=== PATIENT | female | born 1985 | race Caucasian/White ===

== ENCOUNTER 2016-12-14 09:10 | Emergency (ER) | payer OTHER ==
[2016-12-14 09:47] VITALS: BP 107/75
--- NOTE | 2016-12-14 10:11 | UC ---
I, Kwasi,Yin, scribed for Melo Sampson MD on 12/14/16 at 1009 . Respiratory Complaint HPI - HPI Summary HPI Summary: THis 31 y/o female presents to [facility] with chief complaint of sore throat since 3 days ago. She reports hoarseness, subjective fever, cough, ear "itchiness", general myalgia, and diaphoresis. Positive n/v x1 and mild diarrhea this morning. Pt has been taking ibuprofen and mucinex to control symptoms with little relief. PMHx includes tonsillectomy, robyn, appy, and seasonal asthma. - History of Current Complaint Stated Complaint: CONGESTION COUGH HEADACHE VOMITING Hx Obtained From: Patient, Medical Records Hx Last Menstrual Period: 11/30/16 Onset/Duration: Gradual Onset, Still Present Timing: Constant Severity Initially: Mild Severity Currently: Moderate Character: Cough: Productive Associated Signs And Symptoms: Positive: Fever, URI, Hoarseness - Allergies/Home Medications Allergies/Adverse Reactions: Allergies Allergy/AdvReac Type Severity Reaction Status Date / Time Penicillins Allergy Intermediate Swelling Verified 12/14/16 09:47 Of Face,Lips,& Throat sudafed Allergy Rash Uncoded 11/14/16 15:43 Home Medications: Home Medications Dextromethorphan-Phenylephrine [Day-Time PE Cold/Flu Reli] 1 cap PO PRN [History] PMH/Surg Hx/FS Hx/Imm Hx Respiratory History Of: Reports: Asthma - seasonal - Surgical History Surgical History: Yes Surgery Procedure, Year, and Place: 2011. CHOLECYSTECTOMY. APPY. TONSILLECTOMY - Family History Known Family History: Positive: Diabetes - paternal grandmother - Social History Alcohol Use: Occasionally Substance Use Type: None Smoking Status (MU): Never Smoked Tobacco - Immunization History Most Recent Influenza Vaccination: never gets one Review of Systems Constitutional: Fever, Other - diaphoresis Skin: Negative Eyes: Negative ENT: Sore Throat, Ear Ache - ear discomfort Respiratory: Cough Cardiovascular: Negative Gastrointestinal: Vomiting - x1 this morning, Diarrhea - mild Genitourinary: Negative Motor: Negative Musculoskeletal: Negative Neurological: Negative Psychological: Negative All Other Systems Reviewed And Are Negative: Yes Physical Exam Triage Information Reviewed: Yes Appearance: Well-Appearing, No Pain Distress, Well-Nourished Vital Signs: Initial Vital Signs Temp 97.8 F 12/14/16 09:41 Pulse 91 12/14/16 09:41 Resp 16 12/14/16 09:41 BP 107/75 12/14/16 09:41 Pulse Ox 99 12/14/16 09:41 Vital Signs Reviewed: Yes Eyes: Positive: Conjunctiva Clear ENT: Positive: Normal ENT inspection, Hearing grossly normal, Pharyngeal erythema, Nasal congestion, Nasal drainage Neck exam: Normal Neck: Positive: Supple, Nontender, No Lymphadenopathy Respiratory: Positive: Chest non-tender, Lungs clear, Normal breath sounds Cardiovascular: Positive: RRR, No Murmur, Pulses Normal Skin Exam: Normal UC Diagnostic Evaluation - Laboratory O2 Sat by Pulse Oximetry: 99 Respiratory Course/Dx - Differential Dx/Diagnosis Provider Diagnoses: URI Discharge - Discharge Plan Condition: Stable Disposition: HOME Prescriptions: Fluticasone NASAL SPRAY 50MCG* [Flonase NASAL SPRAY 50MCG*] 2 spray BOTH NARES DAILY #1 btl Patient Education Materials: Upper Respiratory Infection (ED) Forms: *Work Release Referrals: Brennon Mcdonough MD [Primary Care Provider] - If Needed The documentation as recorded by the Kwasi jackson Soohyun accurately reflects the service I personally performed and the decisions made by Camilla santos Hossein, MD.
== END 2016-12-14 10:12 | disposition home or self-care (01) ==
LOC: UCEAST 09:10
DX: J06.9 Acute upper respiratory infection, unspecified (principal); Z88.0 Allergy status to penicillin; Z87.09 Personal history of other diseases of the respiratory system
CPT/HCPCS: 99212; G0463

== ENCOUNTER 2017-04-05 08:12 | Emergency (ER) | payer OTHER ==
--- NOTE | 2017-04-05 08:25 | UC ---
Respiratory Complaint HPI - HPI Summary HPI Summary: Here w/ cold sx getting worse from 03/31/17. Was seen by PCP Dr. Mcdonough on 03/31/17 and dx w/ bronchitis and sinusitis, started on doxycycline 100mg BID x10 days, on day 05/03. States sx has not improved. C/o chest pain w/ breathing/coughing and pain worse when lying down. Also c/o arms/shoulder hurt when lifting arms up. Fever on/off last couple days, tmax 101.5. Taking ibuprofen prn, last dose yesterday night. Has taken doxy x 6 d. has lost voice as well. no smoking. no OCP. No travel. using tessalon and proair [ End ] - History of Current Complaint Chief Complaint: UCRespiratory Stated Complaint: COUGH,TIGHT CHEST,BACK PAIN Time Seen by Provider: 04/05/17 08:23 Hx Obtained From: Patient Hx Last Menstrual Period: 11/30/16 ?: No Onset/Duration: Gradual Onset Timing: Constant Severity Initially: Moderate Severity Currently: Moderate Character: Cough: Productive Aggravating Factors: Exertion Alleviating Factors: Nothing Associated Signs And Symptoms: Positive: Nasal Congestion - Risk Factors Pulmonary Embolism Risk Factors: Negative Cardiac Risk Factors: Negative Tuberculosis Risk Factors: Negative - Allergies/Home Medications Allergies/Adverse Reactions: Allergies Allergy/AdvReac Type Severity Reaction Status Date / Time Penicillins Allergy Intermediate Swelling Verified 04/05/17 08:18 Of Face,Lips,& Throat Cefdinir [From Omnicef] Allergy See Comment Verified 04/05/17 08:18 Sodium Benzoate Allergy See Comment Verified 04/05/17 08:18 [From Omnicef] sudafed Allergy Rash Uncoded 04/05/17 08:18 Home Medications: Home Medications Doxycycline (Monohydrate) [Adoxa] 100 mg PO BID 04/05/17 [History Confirmed ] PMH/Surg Hx/FS Hx/Imm Hx Previously Healthy: Yes Endocrine History Of: Denies: Diabetes Respiratory History Of: Reports: Asthma - seasonal - Surgical History Surgical History: Yes Surgery Procedure, Year, and Place: 2011. CHOLECYSTECTOMY. APPY. TONSILLECTOMY - Family History Known Family History: Positive: Diabetes - paternal grandmother - Social History Occupation: Employed Full-time Lives: With Family Alcohol Use: Occasionally Substance Use Type: None Smoking Status (MU): Never Smoked Tobacco Have You Smoked in the Last Year: No - Immunization History Most Recent Influenza Vaccination: never gets one Review of Systems Constitutional: Fatigue Skin: Negative Eyes: Negative ENT: Negative Respiratory: Cough Cardiovascular: Negative Gastrointestinal: Negative Genitourinary: Negative Motor: Negative Neurovascular: Negative Musculoskeletal: Negative Neurological: Negative Psychological: Negative All Other Systems Reviewed And Are Negative: Yes Physical Exam Triage Information Reviewed: Yes Appearance: Well-Appearing, No Pain Distress, Well-Nourished Vital Signs Reviewed: Yes Eye Exam: Normal ENT Exam: Normal ENT: Positive: Normal ENT inspection, Hearing grossly normal, Pharynx normal, Nasal congestion, TMs normal Dental Exam: Normal Neck exam: Normal Neck: Positive: 1 Respiratory Exam: Normal Respiratory: Positive: Chest non-tender, Lungs clear, Normal breath sounds, No respiratory distress Cardiovascular Exam: Normal Musculoskeletal Exam: Normal Neurological Exam: Normal Psychological Exam: Normal Skin Exam: Normal Respiratory Course/Dx - Course Course Of Treatment: Likely Viral with the hoarse voice and not responding to doxy. Start medrol for wheeze . OOW until Friday - Differential Dx/Diagnosis Differential Diagnosis/HQI/PQRI: Asthma, Bronchitis, Lower Resp Infection, Sinusitis Provider Diagnoses: Bronchitis Discharge - Discharge Plan Condition: Good Disposition: HOME Prescriptions: Methylprednisolone [Medrol Dosepak 4 MG*] 0 mg PO .SEE FELTON INSTRUCTION #1 tab Patient Education Materials: Acute Bronchitis (ED) Referrals: Brennon Mcdonough MD [Primary Care Provider] - 3 Days
[2017-04-05 08:28] VITALS: BP 114/59
--- NOTE | 2017-04-05 08:55 | RAD ---
INDICATION: Cough. COMPARISON: Comparison is made to the prior study from July 05, 2012. TECHNIQUE: Dual-energy PA and lateral views of the chest were obtained. FINDINGS: The heart is within normal limits in size. Mediastinal and hilar contours appear within normal limits. The lungs are clear. No pleural effusion is present. IMPRESSION: NO EVIDENCE FOR ACTIVE CARDIOPULMONARY DISEASE.
== END 2017-04-05 09:06 | disposition home or self-care (01) ==
LOC: UCCORT 08:12
DX: J40 Bronchitis, not specified as acute or chronic (principal); Z88.1 Allergy status to other antibiotic agents; Z88.0 Allergy status to penicillin; Z88.8 Allergy status to other drugs, medicaments and biological substances; Z90.49 Acquired absence of other specified parts of digestive tract
CPT/HCPCS: 71020; 99212; G0463

== ENCOUNTER 2017-07-16 18:28 | Emergency (ER) | payer OTHER ==
[2017-07-16 19:17] VITALS: BP 129/70
[2017-07-16] MEDS ORDERED: predniSONE TAB* 20 MG PO ONE (19:33)
[2017-07-16] MEDS ORDERED: Albuterol 2.5 MG/3 ML NEB.SOL* (0.083%) INH ONE (19:33)
--- NOTE | 2017-07-16 20:13 | UC ---
Respiratory Complaint HPI - HPI Summary HPI Summary: 32 y/o female presents to the urgent care c/o nasal congestion with productive cough since 07/08/2017. Symptoms started with seasonal allergies and she has been taking Zyrtec for the past 2 weeks w/o any relief. Now She has develop SOB w/ wheezing, subjective fever at home, and the cough is producing a green phlegm with green nasal discharge. Pt also has PINTO and sinus pressure and LF ear pain and sore throat. Pt denies chest pain, abdominal pain, N/V/D. Pt is allergic to Amoxicillin and Cefdinir. Pt states she always get a yesat infection when she Rx Antibiotics. - History of Current Complaint Chief Complaint: UCRespiratory Stated Complaint: CONGESTION, COUGH Time Seen by Provider: 07/16/17 19:13 Hx Obtained From: Patient Hx Last Menstrual Period: 06/21/17 ?: No Onset/Duration: Gradual Onset, Lasting Weeks, Still Present Timing: Constant Severity Initially: Mild Severity Currently: Severe Pain Intensity: 5 - Headache Pain Scale Used: 0-10 Numeric Character: Cough: Productive - green phlegm Aggravating Factors: Deep Breaths Alleviating Factors: Bronchodilator Associated Signs And Symptoms: Positive: Dyspnea, Fever - subjective, Wheezing, URI, Nasal Congestion, Sinus Discomfort Related History: Seasonal Allergies - Risk Factors Cardiac Risk Factors: Negative Pseudomonas Risk Factors: Negative Tuberculosis Risk Factors: Negative - Allergies/Home Medications Allergies/Adverse Reactions: Allergies Allergy/AdvReac Type Severity Reaction Status Date / Time Penicillins Allergy Intermediate Swelling Verified 07/16/17 19:16 Of Face,Lips,& Throat Cefdinir [From Omnicef] Allergy See Comment Verified 07/16/17 19:16 Sodium Benzoate Allergy See Comment Verified 07/16/17 19:16 [From Omnicef] sudafed Allergy Rash Uncoded 07/16/17 19:16 Home Medications: Home Medications Cetirizine* [ZyrTEC 10 MG TAB*] 10 mg PO DAILY 07/16/17 [History Confirmed 07/16] guaiFENesin ER TAB [Mucinex*] 600 mg PO BID 07/16/17 [History Confirmed 07/16/17 ] PMH/Surg Hx/FS Hx/Imm Hx Previously Healthy: Yes Respiratory History: Asthma Other Respiratory History: Seasonal allergies - Surgical History Surgical History: Yes Surgery Procedure, Year, and Place: 2012. CHOLECYSTECTOMY. APPY. TONSILLECTOMY - Family History Known Family History: Positive: Diabetes - paternal grandmother - Social History Occupation: Employed Full-time Lives: With Family Alcohol Use: Occasionally Substance Use Type: None Smoking Status (MU): Never Smoked Tobacco Have You Smoked in the Last Year: No - Immunization History Most Recent Influenza Vaccination: never gets one Most Recent Tetanus Shot: UTD Most Recent Pneumonia Vaccination: N/A Review of Systems Constitutional: Fever - subjective at home Skin: Negative Eyes: Negative ENT: Sore Throat, Ear Ache - LF ear, Nasal Discharge, Sinus Congestion, Sinus Pain/Tenderness Respiratory: Shortness Of Breath - mild, Cough - productive w/ green phlegm Cardiovascular: Negative Gastrointestinal: Negative Genitourinary: Negative Motor: Negative Neurovascular: Negative Musculoskeletal: Negative Neurological: Headache Psychological: Negative All Other Systems Reviewed And Are Negative: Yes Physical Exam Triage Information Reviewed: Yes Appearance: Well-Appearing, No Pain Distress, Well-Nourished, Obese Vital Signs: Initial Vital Signs Temp 99.7 F 07/16/17 19:13 Pulse 95 07/16/17 19:13 Resp 16 07/16/17 19:13 BP 129/70 07/16/17 19:13 Pulse Ox 98 07/16/17 19:13 Vital Signs Reviewed: Yes Eye Exam: Normal Eyes: Positive: Conjunctiva Clear - PERRLA, EOMI ENT Exam: Normal ENT: Positive: Normal ENT inspection, Hearing grossly normal, Pharynx normal, Nasal congestion - edematous and erythematous nasal mucosa w/ green drainage. Maxillary, frontal sinus tenderness on percussion, TMs normal. Negative: Tonsillar swelling, Tonsillar exudate Dental Exam: Normal Neck exam: Normal Neck: Positive: Supple, Nontender, No Lymphadenopathy Respiratory: Positive: Chest non-tender, No respiratory distress, No accessory muscle use, Wheezing - B/L difusse wheezing throught out the lungs Cardiovascular Exam: Normal Cardiovascular: Positive: RRR, No Murmur, Pulses Normal, Brisk Capillary Refill Abdominal Exam: Normal Abdomen Description: Positive: Nontender, No Organomegaly, Soft. Negative: CVA Tenderness (R), CVA Tenderness (L) Bowel Sounds: Positive: Present Musculoskeletal Exam: Normal Musculoskeletal: Positive: Strength Intact, ROM Intact, No Edema Neurological Exam: Normal Psychological Exam: Normal Skin Exam: Normal UC Diagnostic Evaluation - Laboratory O2 Sat by Pulse Oximetry: 98 Respiratory Course/Dx - Course Course Of Treatment: 32 y/o female presents to the urgent care c/o nasal congestion with productive cough since 07/08/2017. Symptoms started with seasonal allergies and she has been taking Zyrtec for the past 2 weeks w/o any relief. Now She has develop SOB w/ wheezing, subjective fever at home, and the cough is producing a green phlegm with green nasal discharge. Pt also has PINTO and sinus pressure and LF ear pain and sore throat. Pt denies chest pain, abdominal pain, N/V/D.Pt is allergic to Amoxicillin and Cefdinir. Pt states she always get a yesat infection when she Rx Antibiotics.HX obtained. Pt with acute Asthma exarcebation probably triguered by URI. Pt also with acute sinusitis. Pt given 60mg PO Prednisone at the clinic and albuterol treatment. Pt tolerated treatment ans SOB improved. O2Sat 98%. Pt Rx Prednisone taper dose. Z-felton PO , Fluticasone nasal spray and advised to keep taking the Zyrte PO. Increase fluid intake, rest and eat well. Strongly advised to f/o with PCP for further managemtn of her Asthma and seasonal allergies, since this is the 3rd time she is presenting with similar symptoms. Pt also R. x fluconazole PO 1 tab to take at the end of ABX Treatmetn if she develops a yeast infection. Pt advised if Severe SOB develops with wheezing to go immeditely to the ER. Pt understood and agreed. Left the clinic ambulating. - Differential Dx/Diagnosis Differential Diagnosis/HQI/PQRI: Asthma, Bronchitis, Influenza, Laryngitis, Lower Resp Infection, Sinusitis Provider Diagnoses: 1- Acute ASthma exacerbation. 2- Acute sinusitis Discharge - Discharge Plan Condition: Stable Disposition: HOME Prescriptions: Albuterol HFA INHALER* [Ventolin HFA Inhaler*] 2 puff INH Q4H PRN #1 inhaler PRN Reason: asthma Azithromyxin FELTON (NF) [Z-Felton (Zithromax) 250 mg tabs #6] 2 tab PO .TODAY, THEN 1 DAILY #6 tab Fluconazole [Fluconazole 150 mg tab] 150 mg PO ONCE #1 tab Fluticasone NASAL SPRAY 50MCG* [Flonase NASAL SPRAY 50MCG*] 2 spray BOTH NARES DAILY #1 btl predniSONE TAB* [Deltasone TAB*] 20 mg PO DAILY #8 tab Patient Education Materials: Sinusitis (ED), Asthma (ED) Forms: *Work Release Referrals: Brennon Mcdonough MD [Primary Care Provider] - 2 Days Additional Instructions: 1-Please take full course of antibiotic to avoid resistance. 2-Take Prednisone PO as directed continue using the albuterol inhaler 3- If symptoms do not improve or worsen or your develop SOB with fever and severe wheezing please go immediately to the ER further evaluation and treatment. 4- F/u with your PCP in 2-3 days for further management on your Asthma
== END 2017-07-16 20:39 | disposition home or self-care (01) ==
LOC: UCCORT 18:28
DX: J45.901 Unspecified asthma with (acute) exacerbation (principal); J01.90 Acute sinusitis, unspecified; Z90.49 Acquired absence of other specified parts of digestive tract; E66.9 Obesity, unspecified; Z88.1 Allergy status to other antibiotic agents; Z88.0 Allergy status to penicillin
CPT/HCPCS: 99212; G0463; J7512

== ENCOUNTER 2017-07-18 18:42 | Emergency (ER) | payer OTHER ==
[2017-07-18] MEDS ORDERED: Albuterol 2.5 MG/3 ML NEB.SOL* (0.083%) ONE (18:47)
[2017-07-18] MEDS ORDERED: methylPREDNISolone 125 MG* 2 ML VIAL IM ONE (18:50)
[2017-07-18] MEDS ORDERED: Albuterol 2.5 MG/3 ML NEB.SOL* (0.083%) INH ONE (18:50)
[2017-07-18 18:52] VITALS: BP 107/69
--- NOTE | 2017-07-18 19:17 | UC ---
Shortness of Breath HPI - HPI Summary HPI Summary: 32 YEAR OLD FEMALE -PRESENTS WITH COMPLAINS OF SEVERE WHEEZING, HYPERVENTILATION , AND LEFT SIDED CHEST PAIN. I WILL SEND HER TO THE ED TO RULE OUT PE. - History of Current Complaint Chief Complaint: UCRespiratory Stated Complaint: SHORTNESS OF BREATH Time Seen by Provider: 07/18/17 18:44 Hx Obtained From: Patient Hx Last Menstrual Period: 06/21/17 Onset/Duration: Sudden Onset Timing: Constant Current Severity: Moderate Aggrevating Factors: Deep Breaths Alleviating Factors: Bronchodilators Associated Signs & Symptoms: Positive: Wheezing - Allergy/Home Medications Allergies/Adverse Reactions: Allergies Allergy/AdvReac Type Severity Reaction Status Date / Time Penicillins Allergy Intermediate Swelling Verified 07/18/17 18:52 Of Face,Lips,& Throat Cefdinir [From Omnicef] Allergy See Comment Verified 07/18/17 18:52 Sodium Benzoate Allergy See Comment Verified 07/18/17 18:52 [From Omnicef] sudafed Allergy Rash Uncoded 07/18/17 18:52 PMH/Surg Hx/FS Hx/Imm Hx Previously Healthy: Yes - Surgical History Surgical History: Yes Surgery Procedure, Year, and Place: 2012. CHOLECYSTECTOMY. APPY. TONSILLECTOMY - Family History Known Family History: Positive: Diabetes - paternal grandmother - Social History Alcohol Use: Occasionally Substance Use Type: None Smoking Status (MU): Never Smoked Tobacco Have You Smoked in the Last Year: No - Immunization History Most Recent Influenza Vaccination: never gets one Most Recent Tetanus Shot: UTD Most Recent Pneumonia Vaccination: N/A Review of Systems Constitutional: Negative Skin: Negative Eyes: Negative ENT: Negative Respiratory: Shortness Of Breath, Cough Cardiovascular: Chest Pain - LEFT SIDE Gastrointestinal: Negative Genitourinary: Negative Motor: Negative Neurovascular: Negative Musculoskeletal: Negative Neurological: Negative Psychological: Negative All Other Systems Reviewed And Are Negative: Yes Physical Exam Triage Information Reviewed: Yes Appearance: Ill-Appearing Vital Signs: Initial Vital Signs Temp 36.6 C 07/18/17 18:48 Pulse 89 07/18/17 18:48 Resp 32 07/18/17 18:48 BP 107/69 07/18/17 18:48 Pulse Ox 100 07/18/17 18:48 Eye Exam: Normal ENT Exam: Normal Dental Exam: Normal Neck exam: Normal Neck: Positive: 1 Respiratory: Positive: Respiratory distress, Decreased breath sounds, Wheezing, Expiration Cardiovascular Exam: Normal Abdominal Exam: Normal Musculoskeletal Exam: Normal Neurological Exam: Normal Psychological Exam: Normal Skin Exam: Normal Shortness of Breath Dx - Differential Dx/Diagnosis Provider Diagnoses: SHORTNESS OF BREATH. LEFT SIDED CHEST PAIN Discharge - Discharge Plan Condition: Guarded Disposition: [facility] Patient Education Materials: Dyspnea (ED) Referrals: Brennon Mcdonough MD [Primary Care Provider] -
== END 2017-07-18 19:06 | disposition short-term general hospital (02) ==
LOC: UCCORT 18:42
DX: R06.02 Shortness of breath (principal); R07.9 Chest pain, unspecified; Z88.1 Allergy status to other antibiotic agents; Z88.2 Allergy status to sulfonamides; Z88.8 Allergy status to other drugs, medicaments and biological substances
CPT/HCPCS: 96372; 99213; G0463; J2930

== ENCOUNTER 2017-10-20 15:43 | Emergency (ER) | payer OTHER ==
[2017-10-20 15:55] VITALS: BP 138/59
[2017-10-20] MEDS ORDERED: Silver Sulfadiazine 1%* 20 GM TOPICAL ONE (16:46)
[2017-10-20] MEDS ORDERED: Ibuprofen TAB* 600 MG PO ONE (16:46)
--- NOTE | 2017-10-20 16:56 | UC ---
Mima Middleton Emily, scribed for Erlinda Chinchilla MD on 10/20/17 at 1628 . HPI BURN - HPI Summary HPI Summary: This patient is a 32 year old F presenting to urgent care with a chief complaint of burn to her left 2nd, 3rd, 4th, and 5th fingers that occurred around 1230 today. Pt reports that burn occurred with steam while she was cooking at work. Pt did not touch surface, just steam. Pt reports running her hand under cold water after exposure to the steam. Pt states she also applied a burn cream which seemed to make the pain worse. The patient rates the pain 7/ 10 in severity. Symptoms alleviated by Tylenol. Patient reports tingling in L 3 rd finger, inability to bend fingers secondary to pain, blistering on L middle finger, and redness on fingers. Pt is R handed. tdap UTD. not immunocompromised. Patients medications reviewed this visit. - History of Current Complaint Chief Complaint: UCBurn Stated Complaint: FINGER STEAM BURNED WC Time Seen by Provider: 10/20/17 16:24 Hx Obtained From: Patient Hx Last Menstrual Period: 06/21/17 Occurred: Hours Ago Onset Severity: Moderate Current Severity: Moderate Pain Intensity: 7 Pain Scale Used: 0-10 Numeric Location: LUE Character: Blisters: Intact Aggravating Factor(s): Nothing Alleviating Factor(s): Other - Tylenol - Allergy/Home Medications Allergies/Adverse Reactions: Allergies Allergy/AdvReac Type Severity Reaction Status Date / Time Penicillins Allergy Intermediate Swelling Verified 10/20/17 15:55 Of Face,Lips,& Throat Cefdinir [From Omnicef] Allergy See Comment Verified 10/20/17 15:55 Sodium Benzoate Allergy See Comment Verified 10/20/17 15:55 [From Omnicef] sudafed Allergy Rash Uncoded 10/20/17 15:55 PMH/Surg Hx/FS Hx/Imm Hx Previously Healthy: No Endocrine History: Other Other Endocrine History: Negative diabetes Cardiovascular History: Other Other Cardiovascular History: Negative hypertension - Surgical History Surgical History: Yes Surgery Procedure, Year, and Place: 2012. CHOLECYSTECTOMY. APPY. TONSILLECTOMY - Family History Known Family History: Positive: Diabetes - paternal grandmother - Social History Occupation: Employed Full-time Lives: Alone Alcohol Use: Rare Substance Use Type: None Smoking Status (MU): Never Smoked Tobacco Have You Smoked in the Last Year: No - Immunization History Most Recent Influenza Vaccination: never gets one Most Recent Tetanus Shot: UTD Most Recent Pneumonia Vaccination: N/A Review of Systems Constitutional: Negative Skin: Other - Positive burn and redness to L 2nd, 3rd, 4th - blistering on middle finger Motor: Other - Positive inability to bend L fingers secondary to pain Neurological: Other - Positive tingling in L 3rd finger All Other Systems Reviewed And Are Negative: Yes Physical Exam Triage Information Reviewed: Yes Appearance: Well-Appearing, No Pain Distress, Well-Nourished Vital Signs: Initial Vital Signs Temp 97.7 F 10/20/17 15:53 Pulse 106 10/20/17 15:53 Resp 20 10/20/17 15:53 BP 138/59 10/20/17 15:53 Pulse Ox 99 10/20/17 15:53 Vital Signs Reviewed: Yes Eyes: Positive: Conjunctiva Clear ENT: Positive: Hearing grossly normal Dental Exam: Normal Neck exam: Normal Neck: Positive: Supple, Nontender, No Lymphadenopathy Respiratory Exam: Normal Respiratory: Positive: No respiratory distress Cardiovascular: Positive: Other: - 2+ radial, ulna CBT <2 sec Musculoskeletal: Positive: Other: - + full flex/ext mcp, pip, dip all digits on right Neurological: Positive: Other: - + gross sensation throughout fingers Skin: Positive: Other - Pt with 1st degree torres on 2/3/4 fingers, dosrum left hand pt with small blister middle finger mid mid phlaynx No circumferential torres no wounds to dorsum or palmar surface Burn Calculation - [place] Formula for Fluid Resuscitation Weight: 122.47 kg 24 -Hour Fluid Replacement: 0.0 Course/Dx Burn - Course Course Of Treatment: Pt with 1st degree torres from steam on 2/3/4 fingers no cicumferential one small blister middle digit, small superficial 2nd degree to middle. silvadene. analgesia. splint. WC paperwork. burn f/u. Pt comfortable and in agreement with plan - Diagnoses Clinic Provider Diagnoses: 1st degree torres left hand fingers Discharge - Discharge Plan Condition: Stable Disposition: HOME Prescriptions: Hydrocodone-Acetaminophen [Port Tobacco 5-325 mg] 1 - 2 tab PO Q6HR PRN #20 tab MDD 8 PRN Reason: Pain Silver Sulfadiazine 1%* [SILVadine 1%*] 1 applic TOPICAL BID #1 jar Patient Education Materials: Superficial Burn (ED) Forms: *Work Release Referrals: Brennon Mcdonough MD [Primary Care Provider] - Additional Instructions: - Cover your torres with a thick layer of silvadene ointment 2 times a day - keep wounds covered - Alternate ibuprofen (advil, Motrin) 600mg and tylenol product (Tylenol or Port Tobacco) every 3 hours for pain. Take with food. Do NOT take for more than 4-[address], operate machinery or drink alcohol while taking Port Tobacco - Elevate your arm today and tomorrow to help with swelling and discomfort - wear splint for comfort and support - Contact the surgeon on your referral to schedule a follow-up appointment this week - Contact your doctor, return here or go to the emergency department with questions or concerns The documentation as recorded by the Mima jackson Emily accurately reflects the service I personally performed and the decisions made by me, Erlinda Chinchilla MD.
== END 2017-10-20 17:21 | disposition home or self-care (01) ==
LOC: UCEAST 15:43
DX: T23.232A Burn of second degree of multiple left fingers (nail), not including thumb, initial encounter (principal); T31.0 Burns involving less than 10% of body surface; X13.1XXA Other contact with steam and other hot vapors, initial encounter; Y93.G3 Activity, cooking and baking; Y92.9 Unspecified place or not applicable; Y99.0 Civilian activity done for income or pay
CPT/HCPCS: 16020; 99212; A9270-GY; G0463

== ENCOUNTER 2017-12-11 15:37 | Emergency (ER) | payer OTHER ==
--- OUTSIDE RECORDS SUMMARY | 2017-12-11 15:48 | XMS REPORT ---
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 Primary Care Physician Unavailable Payers Type Date Identification Numbers Payment Provider Subscriber Health Maintenance Policy Number: [facility] [employer] (O) [id number] Group Number: [id number] [address] PayID: [id number] [place] [address] Commercial Expires: 04/22/2017 Policy Number: [id number] [facility] [employer] Group Number: [id number] [address] [facility] PayID: [id number] [address] [place] [address] Problems Date Description Provider Status Onset: 06/02/2017 Chronic rhinitis Omar Smith MD Active Onset: 06/02/2017 Gastroesophageal reflux disease Omar Smith MD Active Onset: 06/02/2017 Difficulty speaking Omar Smith MD Active Onset: 09/05/2017 Allergic rhinitis Omar Smith MD Active Family History Date Family Member(s) Problem(s) Comments General Allergies General Asthma General Diabetes General Migraine General Thyroid Disease Social History Type Date Description Comments Occupation Student Cigarette Use Never Smoked Cigarettes Cigars current.no Pipe current.no Smokeless Tobacco current.no ETOH Use Current Alcohol Use Occasionally Allergies, Adverse Reactions, Alerts Date Description Reaction Status Severity Comments 02/08/2010 Penicillins active 02/13/2010 Latex active 02/13/2010 Fish active 02/13/2010 Bee Pollen/[place] Jelly/Honey active 02/13/2010 Augmentin active 02/13/2010 Grass active 02/13/2010 Trees active Medications Medication Date Status Form Strength Qnty SIG Indications Ordering Provider Prednisone 12/04/ Active Tablets 20mg 10tabs 20mg by J45.998 [facility] 2017 mouth one Sarah per day , in in the morning Flonase 09/11/ Active Suspension 50mcg/Act 1units 2 puffs Omar Allergy Relief 2016 both side Eddieparelia once per MD day Azelastine HCL 09/11/ Active Solution 0.1% 30ml one puff Omar (Nasal) 2016 both Sarah sides MD twice a day Dymista 09/05/ Active Suspension 137-50mcg/ 1units 2 puff Omar 2017 Act both Saarh santamaria MD once a day Omeprazole 06/02/ Active Capsules DR 40mg 90caps one by K21.9 Formerly [facility] 2016 mouth one Eddiepartana per day , Famotidine 06/02/ Active Tablets 40mg 90tabs 40 mg at K21.9 Formerly [facility] 2017 bedtime MD Sarah Ibuprofen 00/ Active Unknown 0000 Goodsense / Active Liquid 5-6.25-10- as needed Mando, Nighttime Cold 0000 325mg/15ML Priyanka, & Flu N.P. Severe Nyquil Severe / Active Liquid 5-6.25-10- Unknown Cold/Flu 0000 325mg/15ML Metformin HCL / Active Tablets 500mg Take 1 Unknown 0000 Tablet By Mouth Twice Daily Fexofenadine / Active Tablets 180mg [place] HCL 0000 P.A., Zoe Zofran 02/22/ Hx Tablets 4mg 40tabs 4mg po Omar 2009 - q6h prn Eddieparelia 06/02/ MD 2016 Prednisone 02/22/ Hx Tablets 20mg 7Days 20mg po Omar 2009 - one per Eddieparelia 06/02/ day in am MD 2016 Vital Signs Date Vital Result Comment 12/04/2017 BP Systolic 144 mmHg BP Diastolic 89 mmHg Heart Rate 89 /min Respiratory Rate 17 /min Weight 275.00 lb Weight in kg's 124.740 Height 64 inches 5'4" Height in cm's 162.6 cm BMI (Body Mass Index) 47.2 kg/m2 06/02/2017 BP Systolic 128 mmHg BP Diastolic 67 mmHg Heart Rate 90 /min Respiratory Rate 17 /min 02/08/2010 BP Systolic 120 mmHg BP Diastolic 84 mmHg Heart Rate 85 /min Respiratory Rate 16 /min Results Test Date Test Result H/L Range Note Surgical Pathology 02/21/2010 Surgical Pathology 1 <SEE NOTE> 1 --- RUN DATE: 02/22/10 [facility] NMI LIVE PAGE 1 RUN TIME: 1521 Specimen Inquiry RUN USER: INTERFACE -- Name: DAVID BOLIVAR Gab[place] Status: [facility] Re02/21/10 Age/Sex: 25/F Unit#: [id number] Location: [facility] : [birth year] -- Specimen: [id number] SOUT Spec Date: 02/21/[address]: Omar sargent MD Spec Type: SURGICAL P Received: 02/21/10-1351 Copies to: SPECIMEN 1) LEFT TONSIL 2) RIGHT TONSIL HISTORY PRE-OP DIAGNOSIS: Chronic tonsillitis. GROSS DESCRIPTION 1) The specimen is received in formalin labelled David Gabino. [place], Left Tonsil, and consists of a tonsil measuring 3.4 x 2.2 x 2.0 cm. Cut section demonstrates fernández, fleshy parenchyma. Ammonia Worker section, one cassette. 2) The specimen is received in formalin labelled David L. [place], Right Tonsil, and consists of a tonsil measuring 3.3 x 2.0 x 1.5 cm. Cut section demonstrates fernández, fleshy parenchyma. Ammonia Worker section, one cassette. DIAGNOSIS 1) Oropharynx, left tonsil, tonsillectomy: Follicular lymphoid hyperplasia. 2) Oropharynx, right tonsil, tonsillectomy: Follicular lymphoid hyperplasia. Signed Electronically by: JAMAR MILLIGAN MD 02/22/10 1520 -- -- DEPARTMENT OF PATHOLOGY, [address] [place] [address] [facility] Permit #[id number] Jamar Milligan M.D. Director Rosas Hunter M.D. Boat Ride Operator Dir terell -- Procedures Date CPT Code Description Status 08/13/2017 58585 Prick Test Completed 07/09/2017 37999 No Show Fee Completed 06/02/2017 44881 Fiberoptic Laryngoscopy Completed 02/21/2010 55755 Tonsillectomy Age 12 And Over Completed Encounters Type Date Location Provider CPT E/M Dx Office Visit 09/05/2017 11:30a [place],[facility] 11/24/07 [place] [address] J30.9 J31.0 K21.9 Office Visit 06/02/2017 11:30a [facility],After 11/24/07 [place] [address] J31.0 K21.9 R49.0 Office Visit 02/08/2010 9:45a [place],After 11/24/07 [place] [address] 474.00 474.11 Plan of Care 12/04/2017 - Omar Smith MDJ45.998 Other asthmaNew Medication:Prednisone 20 mgComments:Auscultation of the chest elicits prolonged expiratory phase with wheezing. Few rhonchi. No rales.Clinical impression is in keeping with exacerbation of reactive airway disease I started her on some Advair discus, and by mouth prednisone recheck back if not improving she was advised uses Ventolin on a when necessary [id number] Allergic rhinitis, unspecified
--- NOTE | 2017-12-11 17:06 | UC ---
Respiratory Complaint HPI - HPI Summary HPI Summary: 32 yo female with cough x 12 days some wheezing occasionally productive of [place] green sputum no cp or sob feverish at times - History of Current Complaint Chief Complaint: UCRespiratory Stated Complaint: COUGH,SORE THROAT Time Seen by Provider: 12/11/17 16:55 Hx Obtained From: Patient Hx Last Menstrual Period: 11/03/17 Onset/Duration: Gradual Onset, Lasting Days - 12 Timing: Constant Severity Initially: Moderate Severity Currently: Moderate Pain Intensity: 3 Pain Scale Used: 0-10 Numeric Character: Cough: Productive Aggravating Factors: Nothing Alleviating Factors: Bronchodilator Associated Signs And Symptoms: Positive: Fever, Chills, Wheezing, Nasal Congestion Related History: Similar Episode/Dx as: - bronchitis - Allergies/Home Medications Allergies/Adverse Reactions: Allergies Allergy/AdvReac Type Severity Reaction Status Date / Time Penicillins Allergy Intermediate Swelling Verified 12/11/17 15:51 Of Face,Lips,& Throat Cefdinir [From Omnicef] Allergy See Comment Verified 12/11/17 15:51 Sodium Benzoate Allergy See Comment Verified 12/11/17 15:51 [From Omnicef] sudafed Allergy Rash Uncoded 12/11/17 15:51 Home Medications: Home Medications metFORMIN* [Glucophage 500 MG TAB *] 1 tab PO BID 12/11/17 [History Confirmed ] PMH/Surg Hx/FS Hx/Imm Hx Previously Healthy: Yes Respiratory History: Asthma, Bronchitis, Pneumonia - Surgical History Surgical History: Yes Surgery Procedure, Year, and Place: 2012. CHOLECYSTECTOMY. APPY. TONSILLECTOMY - Family History Known Family History: Positive: Diabetes - paternal grandmother - Social History Alcohol Use: Rare Substance Use Type: None Smoking Status (MU): Never Smoked Tobacco Have You Smoked in the Last Year: No - Immunization History Most Recent Influenza Vaccination: never gets one Most Recent Tetanus Shot: UTD Most Recent Pneumonia Vaccination: N/A Review of Systems Constitutional: Fever, Chills, Fatigue Skin: Negative Eyes: Negative ENT: Negative Respiratory: Cough Cardiovascular: Negative Gastrointestinal: Negative Genitourinary: Negative Motor: Negative Neurovascular: Negative Musculoskeletal: Negative Neurological: Negative Psychological: Negative Is Patient Immunocompromised?: No All Other Systems Reviewed And Are Negative: Yes Physical Exam Triage Information Reviewed: Yes Appearance: Well-Appearing, No Pain Distress, Well-Nourished Vital Signs: Initial Vital Signs Temp 98.1 F 12/11/17 15:48 Pulse 88 12/11/17 15:48 Resp 18 12/11/17 15:48 Pulse Ox 100 12/11/17 15:48 Vital Signs Reviewed: Yes Eyes: Positive: Conjunctiva Clear ENT: Positive: Hearing grossly normal, Pharynx normal, TMs normal, Uvula midline. Negative: Nasal congestion, Nasal drainage, Tonsillar swelling, Tonsillar exudate, Trismus, Muffled voice, Hoarse voice, Sinus tenderness Neck: Positive: Supple, Nontender, No Lymphadenopathy Respiratory: Positive: Normal breath sounds, No respiratory distress, No accessory muscle use, Wheezing - with forced expiration only Cardiovascular: Positive: RRR, No Murmur Musculoskeletal: Positive: ROM Intact, No Edema Neurological: Positive: Alert Psychological Exam: Normal Skin Exam: Normal UC Diagnostic Evaluation - Laboratory O2 Sat by Pulse Oximetry: 100 - normal/not hypoxic - Radiology Xray Interpretation: No Acute Changes Radiology Interpretation Completed By: Radiologist Respiratory Course/Dx - Differential Dx/Diagnosis Provider Diagnoses: acute bronchitis Discharge - Discharge Plan Condition: Stable Disposition: HOME Prescriptions: Albuterol 2.5MG/3ML (0.083%)* [Ventolin 2.5 MG/3 ML NEB.ANDRES*] 2.5 mg INH QID #1 box Doxycycline Hyclate [Doxycycline Hyclate Dr] 100 mg PO BID #14 tab Patient Education Materials: Acute Bronchitis (ED) Forms: *Work Release Referrals: [facility] [Outside] - If Needed (if yo need a primary care provider call her) Additional Instructions: recheck for worsening symptoms recheck in 4-5 days if not better
[2017-12-11] MEDS ORDERED: Ipratropium 0.5MG/2.5ML NEB* 0.5 MG/2.5 ML NEB.SOLN INH ONE (17:23)
[2017-12-11] MEDS ORDERED: Albuterol 2.5 MG/3 ML NEB.SOL* (0.083%) INH ONE (17:23)
--- NOTE | 2017-12-11 17:37 | RAD ---
Indication: Cough. 2 views of the chest including dual energy PA views demonstrate no mediastinal shift. Heart is of normal size and configuration. Lung ga are clear. When compared to previous exam of April 05, 2017 no significant change is noted. IMPRESSION: No active cardiopulmonary disease is noted.
[2017-12-11 18:18] VITALS: BP 128/64
== END 2017-12-11 18:19 | disposition home or self-care (01) ==
LOC: UCEAST 15:37
DX: J20.9 Acute bronchitis, unspecified (principal); Z88.0 Allergy status to penicillin; Z88.1 Allergy status to other antibiotic agents; Z88.8 Allergy status to other drugs, medicaments and biological substances
CPT/HCPCS: 71046; 99212; G0463; J7644

== ENCOUNTER 2018-06-01 21:06 | Emergency (ER) | payer OTHER ==
[2018-06-01 21:25] VITALS: BP 124/79
[2018-06-01] MEDS ORDERED: Famotidine TAB* 20 MG PO ONE (21:30)
[2018-06-01] MEDS ORDERED: predniSONE TAB* 20 MG PO ONE (21:30)
--- NOTE | 2018-06-11 21:31 | UC ---
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 Chief Complaint: UCSkin Stated Complaint: SKIN COMPLAINT Time Seen by Provider: 06/01/18 21:25 Hx Obtained From: Patient Hx Last Menstrual Period: 04/20/18 ?: No Onset/Duration: Sudden Onset Pain Intensity: 7 Pain Scale Used: 0-10 Numeric Alleviating Factor(s): Rest, OTC Meds - benadryl Associated Signs And Symptoms: Positive: Swelling, Redness Related History: Dominant Hand Right - Allergies/Home Medications Allergies/Adverse Reactions: Allergies Allergy/AdvReac Type Severity Reaction Status Date / Time cefdinir [From Omnicef] Allergy Eyes Verified 06/01/18 21:27 Itchy/Swollen/Red/Watery Penicillins Allergy Swelling Verified 06/01/18 21:27 Of Face,Lips,& Throat sudafed Allergy Rash Uncoded 06/01/18 21:27 PMH/Surg Hx/FS Hx/Imm Hx Previously Healthy: No Respiratory History: Asthma - Surgical History Surgical History: Yes Surgery Procedure, Year, and Place: 2012. CHOLECYSTECTOMY. APPY. TONSILLECTOMY - Family History Known Family History: Positive: Diabetes - paternal grandmother - Social History Occupation: Employed Full-time Lives: With Family Alcohol Use: Rare Substance Use Type: None Smoking Status (MU): Never Smoked Tobacco Have You Smoked in the Last Year: No - Immunization History Most Recent Influenza Vaccination: never gets one Most Recent Tetanus Shot: UTD Most Recent Pneumonia Vaccination: N/A Review of Systems Constitutional: Negative Skin: Other - right hand pain and swelling, Eyes: Negative ENT: Negative Respiratory: Negative Cardiovascular: Negative Gastrointestinal: Negative Genitourinary: Negative Motor: Negative Neurovascular: Negative Musculoskeletal: Negative Neurological: Negative Psychological: Negative Is Patient Immunocompromised?: No All Other Systems Reviewed And Are Negative: Yes Physical Exam Triage Information Reviewed: Yes Appearance: Well-Appearing, No Pain Distress, Well-Nourished Vital Signs: Initial Vital Signs Temp 98.5 F 06/01/18 21:19 Pulse 90 06/01/18 21:19 Resp 18 06/01/18 21:19 BP 124/79 06/01/18 21:19 Pulse Ox 100 06/01/18 21:19 Vital Signs Reviewed: Yes Eye Exam: Normal Eyes: Positive: Conjunctiva Clear ENT Exam: Normal ENT: Positive: Normal ENT inspection, Hearing grossly normal. Negative: Trismus , Muffled voice, Hoarse voice Dental Exam: Normal Neck exam: Normal Neck: Positive: Supple, Nontender Respiratory Exam: Normal Respiratory: Positive: Chest non-tender, Lungs clear, Normal breath sounds, No respiratory distress, No accessory muscle use Cardiovascular Exam: Normal Cardiovascular: Positive: RRR, No Murmur, Pulses Normal, Brisk Capillary Refill Musculoskeletal Exam: Other Musculoskeletal: Positive: Strength Intact, ROM Intact, Edema @ - right hand Neurological Exam: Normal Neurological: Positive: Alert, Muscle Tone Normal Psychological Exam: Normal Skin Exam: Normal Hand/Wrist Course/Dx - Course Course Of Treatment: ice, benadryl, prednisone, pepcid, elevation follow with pcp - Differential Dx/Diagnosis Provider Diagnoses: insect bite right hand Discharge - Sign-Out/Discharge Documenting (check all that apply): Patient Departure - Discharge Plan Condition: Stable Disposition: HOME Prescriptions: Famotidine TAB 40 MG(NF) [Pepcid TAB 40 MG(NF)] 40 mg PO DAILY #5 tab predniSONE TAB* [Deltasone TAB*] 50 mg PO DAILY #4 tab Patient Education Materials: Diphenhydramine (By mouth), Insect Bite or Sting ( ED), Ice Pack Application (ED) Forms: *Work Release Referrals: Brennon Mcdonough MD [Primary Care Provider] - If Needed - Billing Disposition and Condition Condition: STABLE Disposition: Home
== END 2018-06-01 21:56 | disposition home or self-care (01) ==
LOC: UCCORT 21:06
DX: S60.561A Insect bite (nonvenomous) of right hand, initial encounter (principal); W57.XXXA Bitten or stung by nonvenomous insect and other nonvenomous arthropods, initial encounter; Y93.9 Activity, unspecified; Y92.9 Unspecified place or not applicable; J45.909 Unspecified asthma, uncomplicated; Z88.1 Allergy status to other antibiotic agents; Z88.0 Allergy status to penicillin; Z88.8 Allergy status to other drugs, medicaments and biological substances; Z83.3 Family history of diabetes mellitus
CPT/HCPCS: 84702; 99212; A9270-GY; G0463; J7512

== ENCOUNTER 2019-03-31 14:18 | Emergency (ER) | payer OTHER ==
[2019-03-31 14:49] VITALS: BP 115/84
[2019-03-31] MEDS ORDERED: Ibuprofen TAB* 600 MG PO ONE (14:59)
--- NOTE | 2019-03-31 15:06 | UC ---
Lower Extremity/Ankle HPI - HPI Summary HPI Summary: 34-year-old woman comes in with a chief complaint of left foot pain. This started several days ago on the plantar aspect of the distal foot just proximal to the toes. Pain is worse with ambulation and weightbearing and any kind of pressure. Pain is better with rest and elevation. No specific trauma. Patient knows that she has had a change of footwear recently going from regular shoes to flip flops. She transmitted ibuprofen which does help some with the pain. - History of Current Complaint Chief Complaint: UCLowerExtremity Stated Complaint: LT FOOT SWELLING/PAIN Time Seen by Provider: 03/31/19 14:52 Hx Last Menstrual Period: 03/28/19 Pain Intensity: 4 - Allergies/Home Medications Allergies/Adverse Reactions: Allergies Allergy/AdvReac Type Severity Reaction Status Date / Time Penicillins Allergy Swelling Verified 01/15/19 17:33 Of Face,Lips,& Throat sudafed Allergy Rash Uncoded 01/15/19 17:33 PMH/Surg Hx/FS Hx/Imm Hx Previously Healthy: Yes - Surgical History Surgical History: Yes Surgery Procedure, Year, and Place: 2012. CHOLECYSTECTOMY. APPY. TONSILLECTOMY - Family History Known Family History: Positive: Diabetes - paternal grandmother - Social History Alcohol Use: Rare Substance Use Type: None Smoking Status (MU): Never Smoked Tobacco Have You Smoked in the Last Year: No - Immunization History Most Recent Influenza Vaccination: never gets one Most Recent Tetanus Shot: UTD Most Recent Pneumonia Vaccination: N/A Review of Systems All Other Systems Reviewed And Are Negative: Yes Constitutional: Positive: Negative Skin: Positive: Negative Eyes: Positive: Negative ENT: Positive: Negative Respiratory: Positive: Negative Cardiovascular: Positive: Negative Gastrointestinal: Positive: Negative Motor: Positive: Negative Neurovascular: Positive: Negative Musculoskeletal: Positive: Other: - see hpi Neurological: Positive: Negative Psychological: Positive: Negative Is Patient Immunocompromised?: No Physical Exam Triage Information Reviewed: Yes Appearance: Well-Appearing, Well-Nourished, Pain Distress - mild with lt foot weight bearing Vital Signs: Initial Vital Signs Temp 97.8 F 03/31/19 14:42 Pulse 74 03/31/19 14:42 Resp 16 03/31/19 14:42 BP 115/84 03/31/19 14:42 Pulse Ox 99 03/31/19 14:42 Vital Signs Reviewed: Yes Eye Exam: Normal Eyes: Positive: Conjunctiva Clear Neck: Positive: Supple Respiratory: Positive: No respiratory distress Musculoskeletal: Positive: Other: - Left foot is tender to palpation on the plantar aspect and also the dorsal aspect of the distal foot over the metatarsals just proximal to the toes. Ankle is also mildly tender to palpation. Achilles tendon is intact. Toes foot has full range of motion. Normal capillary refill no sensation deficit. Neurological: Positive: Alert, Muscle Tone Normal Psychological Exam: Normal Psychological: Positive: Age Appropriate Behavior Skin Exam: Normal Lower Extremity Course/Dx - Course Course Of Treatment: Patient Name: DAVID BOLIVAR Medical Record#: [id number] Ordering Physician: Benjy Mcnulty MD Acct.#: [id number] : 1985 Age: 34 Sex: F Location: [facility] Exam Date: 03/31/19 1450 ADM Status: REG ER Order Information: FOOT LEFT 3+ VWS Accession Number: [id number] CPT: 80001 Indication: Left foot pain. 3 views of left foot demonstrates no fracture. No other bone or joint abnormality is identified. Inferior and posterior calcaneal spur is noted. IMPRESSION: No fracture of the left foot is noted. <Electronically signed by Rach Brumfield MD in OV> 03/31/19 7202 I discussed the x-ray report with the patient. Pain started on the plantar aspect of the foot and therefore we will be treating it like plantar fasciitis. We discussed using anti-inflammatories. Patient does have a history of gout it's on the right location for gout however we will go ahead treated with indomethacin 50 mg by mouth 3 times a day. We also talked about using arch supports and not going barefoot. Plan will be for the patient follow-up with her primary care doctor or podiatry if she does not completely improve. - Differential Dx/Diagnosis Provider Diagnosis: Left foot pain Discharge - Sign-Out/Discharge Documenting (check all that apply): Patient Departure All imaging exams completed and their final reports reviewed: Yes - Discharge Plan Condition: Stable Disposition: HOME Prescriptions: Indomethacin CAP* [Indocin CAP*] 50 mg PO TID PRN #21 cap PRN Reason: Pain Patient Education Materials: Plantar Fasciitis Exercises (GEN), Plantar Fasciitis (ED) Referrals: Brennon Mcdonough MD [Primary Care Provider] - Additional Instructions: FOLLOW UP WITH YOUR PRIMARY CARE DOCTOR OR UNDERLINER IF NOT COMPLETELY IMPROVED. WEAR ARCH SUPPORTS IN ALL YOUR SHOES. GET RECHECKED SOONER IF YOUR CONDITION WORSENS OR ANY QUESTIONS OR CONCERNS. - Billing Disposition and Condition Condition: STABLE Disposition: Home
== END 2019-03-31 16:09 | disposition home or self-care (01) ==
LOC: UCCORT 14:18
DX: M79.672 Pain in left foot (principal); Z88.0 Allergy status to penicillin; Z88.8 Allergy status to other drugs, medicaments and biological substances
CPT/HCPCS: 99212; A9270-GY; G0463

== ENCOUNTER 2019-09-29 08:41 | Emergency (ER) | payer OTHER ==
--- OUTSIDE RECORDS SUMMARY | 2019-09-29 08:51 | XMS REPORT | Summary of Care ---
:1985 Author Organization [facility] Address [address] [facility] [place] [address] Care Team Providers Name Role Phone Brennon Mcdonough Primary Care Provider Reason for Referral Sleep Study (Routine) Status Reason Specialty Diagnoses / Referred By Referred To Procedures Contact Contact Pending Review Sleep Disorder Diagnoses Insufficient sleep syndrome [facility] ROBERT Enriquez [address] [place], [place] [phone] Phone: Scheduling Instructions This order is to be used to begin the process for the patient to have a Sleep Study performed. If you wish to have the patient evaluated by a Sleep Specialist, please place a "Refer Sleep Medicine Specialist" order. If you have questions, please contact our Patient Coordinators: Elvis: [place]: Ori: ([phone] or MRI/CAT/PET Scan (Routine) Status Reason Specialty Diagnoses / Referred By Referred To Procedures Contact Contact Authorized Diagnoses Thyroid disease Zoe Victor Procedures US SOFT TISSUE HEAD NECK ULTRASOUND ROBERT [address] [place] [address] Reason for Visit Reason Comments Sleep Problem pt states she has had trouble sleeping more than 3-5 hours due to anxiety/ life stress. also states losing hair for the last 3 weeks Encounter Details Date Type Department Care Team Description 09/03/2019 Office Visit Arcadio Victor, Zoe, Anxiety (Primary Dx) ; Practice [facility] Hair loss; [address] Enlarged thyroid; [place] [address] [place] [address] Thyroid disease; [phone] Insufficient sleep syndrome; Malaise and fatigue; BMI 40.0-44.9, adult (HCC) Allergies Active Allergy Reactions Severity Noted Date Comments Augmentin Rash Low 10/14/2014 Bee Other 06/27/2012 Nuts Swelling 07/20/2016 almonds Penicillins Anaphylaxis High 08/26/2008 Pseudoephedrine Rash 09/22/2012 documented as of this encounter (statuses as of 09/05/2019) Medications Medication Sig Dispensed Refills Start Date End Date Status ALPRAZolam (XANAX) Take 1 Tab by 60 Tab 0 12/22/2015 Active 0.25 MG Oral Tab mouth THREE TIMES DAILY NEEDED for anxiety. Max Daily Amount: 0.75 mg. EPIPEN 2-FELTON 0.3 USE DIRECTED 2 Each 0 05/05/2017 Active MG/0.3ML Injection BY PHYSICIAN Solution NEEDED (FOR Auto-injectorIndicat ALLERGIC ions: Seasonal REACTION) allergies fluticasone 0 07/16/2017 Active (FLONASE) 50 MCG/ACT Nasal Suspension Cetirizine HCl Take by mouth. 0 Active (ZYRTEC ALLERGY PO) DiphenhydrAMINE Take by mouth. 0 Active Citrate (BENADRYL ALLERGY FASTMELT PO) ondansetron (ZOFRAN) Take 4 mg by 18 Tab 0 03/12/2018 Active 4 MG Oral Tab mouth EVERY EIGHT HOURS NEEDED for nausea. fexofenadine TAKE 1 TABLET 30 Tab 5 04/21/2018 Active (ALBERTO) 180 MG BY MOUTH DAILY Oral TabIndications: Seasonal allergic rhinitis Pseudoephedrine-APAP Take by mouth. 0 Active -DM (TYLENOL COLD/FLU SEVERE DAY PO) fluticasone (FLOVENT Take 2 Puffs by 1 Inhaler 0 12/25/2018 Active HFA) 110 MCG/ACT inhalation Inhalation TWICE DAILY. AerosolIndications: Mild persistent asthma with acute exacerbation albuterol 3 mL by 360 mg 1 02/24/2019 Active (PROVENTIL, Inhalation-SVN VENTOLIN) (2.5 route EVERY MG/3ML) 0.083% FOUR HOURS Inhalation Nebu NEEDED (SOB). SolnIndications: Mild persistent asthma with acute exacerbation albuterol HFA Take 2 Puffs by 1 Inhaler 2 02/24/2019 Active (VENTOLIN) 108 (90 inhalation Base) MCG/ACT EVERY FOUR Inhalation Aero HOURS NEEDED SolnIndications: (short of Mild intermittent breath). asthma without complication escitalopram Take 1 Tab by 30 Tab 3 09/03/2019 Active (LEXAPRO) 10 MG Oral mouth DAILY. Tab guaiFENesin-codeine Take 10 mL by 420 mL 0 12/25/2018 Discontinued (ROBITUSSIN AC) mouth EVERY 9 100-10 MG/5ML Oral FOUR HOURS SolutionIndications: NEEDED (cough). Cough Max Daily Amount: 60 mL. documented as of this encounter (statuses as of 09/05/2019) Active Problems Problem Noted Date BMI 40.0-44.9, adult 08/13/2012 Post depression 06/27/2012 Mild intermittent asthma 04/13/2010 Seasonal allergies 04/13/2010 Bee sting allergy 04/13/2010 Overview: Replaced inactive diagnosis documented as of this encounter (statuses as of 09/05/2019) Immunizations Name Administration Dates Next Due Influenza (IM) Preservative Free 09/09/2017 Tuberculin Skin Test 12/11/2009 documented as of this encounter Social History Tobacco Use Types Packs/Day Years Used Date Never Smoker Smokeless Tobacco: Never Used Alcohol Use Drinks/Week oz/Week Comments Yes occasional Sex Assigned at Date Recorded Not on file Job Start Date Occupation Industry Not on file Not on file Not on file Travel History Travel Start Travel End No recent travel history available. documented as of this encounter Last Filed Vital Signs Vital Sign Reading Time Taken Comments Blood Pressure 138/88 09/03/2019 8:42 AM EDT Pulse 94 09/03/2019 8:42 AM EDT Temperature 36.4 09/03/2019 8:42 AM EDT C (97.6 F) Respiratory Rate - - Oxygen Saturation 98% 09/03/2019 8:42 AM EDT Inhaled Oxygen Concentration - - Weight 139.7 kg (308 lb) 09/03/2019 8:42 AM EDT Height 162.6 cm (5' 4") 09/03/2019 8:42 AM EDT Body Mass Index 52.87 09/03/2019 8:42 AM EDT documented in this encounter Patient Instructions Patient InstructionsDoZoe hogan PA-C - 09/03/2019 8:40 AM EDT1. Escribed lexapro 10mg once daily, try taking it after dinner Will not feel improvement with anxiety for 10-14 days, but should feel tired Encouraged healthy, low-carb diet, avoid fast food, keep well hydrated, try walking daily with son 2-4. Ordered labs Ordered US thyroid -- insurance approval needed, Betzy will call when she gets it , will schedule US then 5. Ordered home sleep study -- [employer] will get approval and call patient 6. Ordered labs -- will do now -- will call with results F/U appointment 2 weeks Call with any questions or concerns documented in this encounter Progress Notes Zoe Victor PA-C - 09/03/2019 8:40 AM EDT PATIENT: Mahnaz Ojeda : 1985 DATE OF SERVICE: 09/03/2019 REFERRING PRACTITIONER: Gurwinder PRIMARY CARE PROVIDER: Brennon Mcdonough CHIEF COMPLAINT: Chief Complaint Patient presents with Sleep Problem pt states she has had trouble sleeping more than 3-5 hours due to anxiety/ life stress. also states losing hair for the last 3 weeks Subjective HISTORY OF PRESENT ILLNESS: Mahnaz Ojeda is a 34-y.o. female who presents with trouble sleeping x 3 weeks Hard time falling asleep, frequent waking, feeling tired Says she only sleeps 3-5 hrs daily Tried OTC 3mg melatonin last night, says she felt like her breathing became very slow, "freaked me out" Feels anxiety is cause -- a lot stress at home and work -- 7yr old son is autistic, work is stressful Also has been losing hair the past 3 weeks Has taken xanax in past, caused a lot of drowsiness Denies suicidal thoughts At times does not want to leave appartment Water: 6 glasses daily Diet: mix of healthy and fast food -- admits she eats when stress Exercise: try to walk with son daily, a lot of days does not have time Alcohol: none Moving bowels -- goes between constipation or diarrhea Urinating without problem LMP: 04/14/19, has been irregular since having son Says Dr. Mcdonough in past has said thyroid felt enlarged. Patient says sometimes feels like something is in throat, left side Intermittently Wakes up gasping for air. Was told during colonoscopy she stopped breathing -- recommended she have sleep study done Denies fever, chills, nausea, vomiting, diarrhea, chest pains, SOB Depression Screening Over the last 2 weeks, have you been feeling down, depressed, anxious, or hopeless?: Nearly every day Over the past 2 weeks, have you felt little interest or pleasure in doing things ?: Not at all Trouble falling or staying asleep, or sleeping too much?: Nearly every day Feeling tired or having little energy?: More than half the days Poor appetite or overeating?: Several days Feeling bad about yourself or that you are a failure or have let yourself or your family down?: Not at all Trouble concentrating on things, such as reading the newspaper or watching TV?: Nearly every day Moving or speaking so slowly that other people notice OR being fidgety and restless?: Not at all Thoughts that you would be better off or of hurting yourself in some way?: Not at all PHQ-9 TOTAL SCORE: 12 Past Medical History: Diagnosis Date Asthma Bee sting allergies 04/13/2010 Chronic cholecystitis 2015 s/p cholecystectomy Depression Esophagitis 2018 EGD Fatty liver Herpes simplex labialis Migraine rominger Seasonal allergies Past Surgical History: Procedure Laterality Date APPENDECTOMY COLONOSCOPY N/A 10/27/2018 Procedure: COLONOSCOPY with biopsies; Surgeon: Levy Bloom DO; Location: [facility] MAIN OR EGD N/A 10/27/2018 Procedure: ENDOSCOPY UPPER GI with biopsies; Surgeon: Levy Bloom DO; Location: [facility] MAIN OR LAPAROSCOPIC CHOLECYSTECTOMY 01/22/2015 [facility] Family History Problem Relation Age of Onset Diabetes Paternal Grandmother Depression/Depressed Unknown multiple Thyroid Disease Maternal Grandmother Current Outpatient Medications Medication Sig albuterol (PROVENTIL, VENTOLIN) (2.5 MG/3ML) 0.083% Inhalation Nebu Soln 3 mL by Inhalation-SVN route EVERY FOUR HOURS NEEDED (SOB). albuterol HFA (VENTOLIN) 108 (90 Base) MCG/ACT Inhalation Aero Soln Take 2 Puffs by inhalation EVERY FOUR HOURS NEEDED (short of breath). ALPRAZolam (XANAX) 0.25 MG Oral Tab Take 1 Tab by mouth THREE TIMES DAILY NEEDED for anxiety. Max Daily Amount: 0.75 mg. Cetirizine HCl (ZYRTEC ALLERGY PO) Take by mouth. DiphenhydrAMINE Citrate (BENADRYL ALLERGY FASTMELT PO) Take by mouth. EPIPEN 2-FELTON 0.3 MG/0.3ML Injection Solution Auto-injector USE DIRECTED BY PHYSICIAN NEEDED (FOR ALLERGIC REACTION) fexofenadine (ALBERTO) 180 MG Oral Tab TAKE 1 TABLET BY MOUTH DAILY fluticasone (FLONASE) 50 MCG/ACT Nasal Suspension fluticasone (FLOVENT HFA) 110 MCG/ACT Inhalation Aerosol Take 2 Puffs by inhalation TWICE DAILY. ondansetron (ZOFRAN) 4 MG Oral Tab Take 4 mg by mouth EVERY EIGHT HOURS NEEDED for nausea. [id number] (TYLENOL COLD/FLU SEVERE DAY PO) Take by mouth. No current facility-administered medications for this visit. Allergies Allergen Reactions Penicillins Anaphylaxis Bee Other Nuts Swelling almonds Sudafed [Pseudoephedrine] Rash Augmentin Rash Social History Socioeconomic History Marital status: Single Spouse name: Not on file Number of children: Not on file Years of education: Not on file Highest education level: Not on file Occupational History Not on file Social Needs Financial resource strain: Not on file Food insecurity: Worry: Not on file Inability: Not on file Transportation needs: Medical: Not on file Non-medical: Not on file Tobacco Use Smoking status: Never Smoker Smokeless tobacco: Never Used Substance and Sexual Activity Alcohol use: Yes Comment: occasional Drug use: No Sexual activity: Yes Partners: Male Lifestyle Physical activity: Days per week: Not on file Minutes per session: Not on file Stress: Not on file Relationships Social connections: Talks on phone: Not on file Gets together: Not on file Attends anabaptist service: Not on file Active member of club or organization: Not on file Attends meetings of clubs or organizations: Not on file Relationship status: Not on file Intimate partner violence: Fear of current or ex partner: Not on file Emotionally abused: Not on file Physically abused: Not on file Forced sexual activity: Not on file Other Topics Concern Back Care Not Asked Bike Helmet Not Asked Blood Transfusions Not Asked Caffeine Concern Not Asked Exercise Not Asked Hobby Hazards Not Asked International Travel Not Asked Service Not Asked Occupational Exposure Not Asked Seat Belt Not Asked Self-Exams Not Asked Sleep Concern Not Asked Special Diet Not Asked Stress Concern Not Asked Weight Concern Yes Social History Narrative Lives in [place], [place] Single Mom, father is from [place] and will be deported summer 2011 Infant son at home Grew up in [facility] Lives in parents house 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 Positive asthma Cardiovascular: negative chest pain Gastrointestinal: negative abdominal pain, constipation, diarrhea, nausea or vomiting Genitourinary: negative burning on urination, dysuria or vaginal discharge Musculoskeletal: negative arthritis/joint pain Neurologic: positive sleep disturbances Psychiatric: positive anxiety Hematologic/Lymphatic/Immunologic: positive allergies Endocrine: negative diabetes or hot flashes/sweats Objective PHYSICAL EXAMINATION: VITALS: BP 138/88 (BP Location: Right arm, Patient Position: Sitting) | Pulse 94 | Temp 97.6 F (36.4 C) | Ht 5' 4" (1.626 m) | Wt 308 lb (139.7 kg ) | SpO2 98% | BMI 52.87 kg/m Body mass index is 52.87 kg/m. General appearance - alert, mild distress, cooperative, oriented times 3, morbidly obese Skin - Skin color, texture, turgor normal. No rashes or lesions. Head - Normocephalic. No masses, lesions, tenderness or abnormalities Eyes - conjunctivae/corneas clear. PERRL, EOM's intact. Oropharynx - Lips, mucosa, and tongue normal. Teeth and gums normal. Oropharynx normal. Neck - Neck supple, FROM. No cervical or supraclavicular adenopathy. Thyroid mild enlargement left side. Mallampati Score: 3 Lungs - Good diaphragmatic excursion. Lungs clear. Chest symmetrical. Normal breath sounds. Heart - RRR. No murmurs, clicks or gallops. No peripheral edema. IMPRESSION: ICD-9-CM ICD-10-CM 1. Anxiety 300.00 F41.9 2. Hair loss 704.00 L65.9 3. Enlarged thyroid 240.9 E04.9 THYROID STIMULATING HORMONE THYROID STIMULATING HORMONE 4. Thyroid disease 246.9 E07.9 US SOFT TISSUE HEAD NECK ULTRASOUND 5. Insufficient sleep syndrome 307.44 F51.12 REFER TO SLEEP STUDY LAB 6. Malaise and fatigue 780.79 R53.81 COMPREHENSIVE METABOLIC PANEL R53.83 CBC WITH DIFFERENTIAL CBC WITH DIFFERENTIAL COMPREHENSIVE METABOLIC PANEL Plan PLAN: 1. Escribed lexapro 10mg once daily, try taking it after dinner Will not feel improvement with anxiety for 10-14 days, but should feel tired Encouraged healthy, low-carb diet, avoid fast food, keep well hydrated, try walking daily with son 2-4. Ordered labs Ordered US thyroid -- insurance approval needed, Betzy will call when she gets it , will schedule US then 5. Ordered home sleep study -- [employer] will get approval and call patient 6. Ordered labs -- will do now -- will call with results F/U appointment 2 weeks Call with any questions or concerns Author: Zoe Victor PA-C 09/03/2019 08:44 documented in this encounter Plan of Treatment Date Type Specialty Care Team Description 09/16/2019 Office Visit Family Practice Zoe Victor PA-C [address] [place] [address] [phone] Name Type Priority Associated Diagnoses Order Schedule US SOFT TISSUE HEAD NECK Imaging Routine Thyroid disease Expected: 2018, ULTRASOUND Expires: 09/02/2020 Name Type Priority Associated Diagnoses Order Schedule REFER TO SLEEP STUDY Referral Routine Insufficient sleep syndrome Ordered: 09/03/2019 LAB Health Maintenance Due Date Last Done Comments PAP SMEAR 1985 PNEUMOCOCCAL 0-64 YRS (1 of 1 02/17/1992 - PPSV23) INFLUENZA VACCINE (#1) 2019 09/09/2017 DEPRESSION SCREENING 09/03/2020 09/03/2019, 09/03/2019 HPV IMMUNIZATION SERIES Aged Out No longer eligible based on patient's age to complete this topic MENINGOCOCCAL VACCINE IMM Aged Out No longer eligible based on patient's age to complete this topic documented as of this encounter Goals Goal Patient Goal Associated Recent Patient-Stated? Author Type Problems Progress Depression Depression 12 No Valente, screen (PHQ-9) (09/03/2019 Zoe, total score < 5 8:46 AM EDT) ROBERT Note: This is an individualized treatment (depression) goal for Mahnaz Ojeda: Displayed above is your goal for a depression screening (PHQ-9) score that would indicate good control of your depression. Keep a regular sleep schedule Lifestyle No Zoe Victor PA-C Note: This is an individualized lifestyle goal for Mahnaz Ojeda: Please maintain a regular sleep schedule. This may help with some symptoms of depression. Take all prescribed medications as Self-management No Zoe Victor PA-C directed Note: This is an individualized self-management goal for Mahnaz Ojeda: Please take all prescribed medications as directed. 1. Do not skip doses. If you cannot afford your medications, talk with your doctor. 2. Use a pill reminder system such as a pill box if needed. Your pharmacist can help you with this. 3. Contact your Pharmacy 5 days before your medication runs out. If you cannot take your medications for any reasons, talk with your doctor. 4. Please bring all of your medication bottles and inhalers (or a list of all your medications/inhalers) with you to every visit. Potential barriers to meeting all of your care plan goals will continue to be addressed on an ongoing basis. documented as of this encounter Procedures Procedure Name Priority Date/Time Associated Comments Diagnosis CBC WITH DIFFERENTIAL Routine 09/03/2019 9:20 Malaise and fatigue Results for this AM EDT procedure are in the results section. THYROID STIMULATING Routine 09/03/2019 9:20 Enlarged thyroid Results for this HORMONE AM EDT procedure are in the results section. COMPREHENSIVE Routine 09/03/2019 9:20 Malaise and fatigue Results for this METABOLIC PANEL AM EDT procedure are in the results section. documented in this encounter Results THYROID STIMULATING HORMONE (09/03/2019 9:20 AM EDT) TSH 1.08 0.47 - 4.68 uIu/ml [facility] Specimen Blood - Blood specimen (specimen) Performing Organization Address City/State/Zipcode Phone Number [facility] [address] [place] [address] [phone] CBC WITH DIFFERENTIAL (09/03/2019 9:20 AM EDT) WBC Count 5.50 3.98 - 10.04 K/uL [facility] RBC Count 4.82 3.93 - 5.22 M/UL [facility] Hemoglobin 14.2 11.2 - 15.7 g/dL [facility] Hematocrit 43.6 34.1 - 44.9 % [facility] MCV 90.5 79.4 - 94.8 FL [facility] MCH 29.5 25.6 - 32.2 PG [facility] MCHC 32.6 32.2 - 35.5 g/dL [facility] Platelet Count 228 182 - 369 K/uL [facility] MPV 11.2 9.4 - 12.3 FL [facility] RDW 12.9 11.7 - 14.4 % [facility] Neutrophil % 60.2 34.0 - 71.1 % [facility] Lymphocyte % 27.6 19.3 - 51.7 % [facility] Monocyte % 10.0 4.7 - 12.5 % [facility] Eosinophil % 1.6 0.7 - 5.8 % [facility] Basophil % 0.4 0.1 - 1.2 % [facility] nRBC % 0.0 0.0 - 0.2 % [facility] Neutrophil # 3.31 1.56 - 6.13 K/UL [facility] Lymphocyte # 1.52 1.18 - 3.74 K/UL [facility] Monocyte # 0.55 0.24 - 0.86 K/UL [facility] Eosinophil # 0.09 0.04 - 0.36 K/UL [facility] Basophil # 0.02 0.01 - 0.08 K/UL [facility] Immature Gran % 0.2 0.0 - 0.4 % [facility] Immature Gran # 0.01 0.00 - 0.03 K/uL [facility] NRBC # 0.00 0.00 - 0.12 K/uL [facility] Specimen Blood - Blood specimen (specimen) Performing Organization Address City/State/Zipcode Phone Number [facility] [address] [facility] [place] [address] COMPREHENSIVE METABOLIC PANEL (09/03/2019 9:20 AM EDT) Sodium 137 134 - 145 mmol/L [facility] Potassium 4.4 3.5 - 5.1 mmol/L [facility] Chloride 106 98 - 107 mmol/L [facility] CO2 22 22 - 30 mmol/L [facility] Calcium 9.5 8.3 - 10.1 mg/dl [facility] Albumin 4.3 3.5 - 5.0 g/dl [facility] BUN 14 7 - 17 mg/dl [facility] Creatinine 0.7 0.7 - 1.2 mg/dl [facility] Glucose 102 (H) 70 - 99 mg/dl [facility] Total Protein 7.6 6.3 - 8.2 g/dl [facility] Total Bilirubin 0.4 0.0 - 1.1 MG/DL [facility] AST 39 15 - 46 U/L [facility] ALT 61 (H) 9 - 52 U/L [facility] Alkaline 82 40 - 150 U/L [facility]ORY eGFR >[address] [facility] Comment: Below ml/min/1.73ml GROUP Estimated GFR Interpretation: Sq LABORATORY Above 60ml/min/1.73m2 = Normal Renal Function 30-59 ml/min/1.73m2 = Stage 3 Chronic Kidney Disease 15-29 ml/min/1.73m2 = Stage 4 Chronic Kidney Disease Less than 15 ml/min/1.73m2 = Stage 5 Chronic Kidney Disease The GFR value is calculated using the Modification of Diet in Renal Disease ( MDRD) Study Equation which can be found at: https://www.kidney.org/content/tvzo-bwudu-pprdivqs BUN/Creatinine 20 6 - 22 RATIO [facility]ATORY Anion Gap 9 3 - 11 mmol/L [facility] A/G Ratio 1.3 0.8 - 2.[address] [facility] Specimen Blood - Blood specimen (specimen) Performing Organization Address City/State/Zipcode Phone Number [facility] [address] [place] [address] documented in this encounter Visit Diagnoses Diagnosis Anxiety - Primary Anxiety state, unspecified Hair loss Alopecia, unspecified Enlarged thyroid Goiter, unspecified Thyroid disease Unspecified disorder of thyroid Insufficient sleep syndrome Persistent disorder of initiating or maintaining wakefulness Malaise and fatigue Other malaise and fatigue BMI 40.0-44.9, adult (HCC) Body Mass Index 40.0-44.9, adult documented in this encounter Guarantor Name Account Type Relation to Date of Phone Billing Patient Address Mahnaz Ojeda Personal/Family 1985 [address]) [address] [phone] [place], [place] (Work) [id number] documented as of this encounter
--- OUTSIDE RECORDS SUMMARY | 2019-09-29 08:51 | XMS REPORT | Summary of Care ---
:1985 Author Organization [facility] Address [address] [facility] [place] [address] Care Team Providers Name Role Phone CeasarBrennon palafox Primary Care Provider Reason for Visit Reason Comments Anxiety pt states she is feeling better but she is still losing some hair and still waking up nights. but panick attacks have decreased Encounter Details Date Type Department Care Team Description 09/22/2019 Office Visit Zoe Kelly, Leticia (Primary Dx) ; Practice PA-C Gastroesophageal reflux disease without esophagitis; [address] [facility] [place] [address] [place] [address] [phone] Allergies Active Allergy Reactions Severity Noted Date Comments Augmentin Rash Low 10/14/2014 Bee Other 06/27/2012 Nuts Swelling 07/20/2016 almonds Penicillins Anaphylaxis High 08/26/2008 Pseudoephedrine Rash 09/22/2012 documented as of this encounter (statuses as of 09/22/2019) Medications Medication Sig Dispensed Refills Start Date End Date Status ALPRAZolam (XANAX) 0.25 Take 1 Tab by 60 Tab 0 12/22/2015 Active MG Oral Tab mouth THREE TIMES DAILY NEEDED for anxiety. Max Daily Amount: 0.75 mg. EPIPEN 2-FELTON 0.3 USE DIRECTED 2 Each 0 05/05/2017 Active MG/0.3ML Injection BY PHYSICIAN Solution NEEDED (FOR Auto-injectorIndication ALLERGIC s: Seasonal allergies REACTION) fluticasone (FLONASE) 0 07/16/2017 Active 50 MCG/ACT Nasal Suspension Cetirizine HCl (ZYRTEC Take by mouth. 0 Active ALLERGY PO) DiphenhydrAMINE Citrate Take by mouth. 0 Active (BENADRYL ALLERGY FASTMELT PO) ondansetron (ZOFRAN) 4 Take 4 mg by 18 Tab 0 03/12/2018 Active MG Oral Tab mouth EVERY EIGHT HOURS NEEDED for nausea. fexofenadine (ALBERTO) TAKE 1 TABLET BY 30 Tab 5 04/21/2018 Active 180 MG Oral MOUTH DAILY TabIndications: Seasonal allergic rhinitis Llfevxwnfsgfefn-RGCT-YS Take by mouth. 0 Active (TYLENOL COLD/FLU SEVERE DAY PO) fluticasone (FLOVENT Take 2 Puffs by 1 Inhaler 0 12/25/2018 Active HFA) 110 MCG/ACT inhalation TWICE Inhalation DAILY. AerosolIndications: Mild persistent asthma with acute exacerbation albuterol (PROVENTIL, 3 mL by 360 mg 1 02/24/2019 Active VENTOLIN) (2.5 MG/3ML) Inhalation-SVN 0.083% Inhalation Nebu route EVERY FOUR SolnIndications: Mild HOURS NEEDED persistent asthma with (SOB). acute exacerbation albuterol HFA Take 2 Puffs by 1 Inhaler 2 02/24/2019 Active (VENTOLIN) 108 (90 inhalation EVERY Base) MCG/ACT FOUR HOURS Inhalation Aero NEEDED (short of SolnIndications: Mild breath). intermittent asthma without complication escitalopram (LEXAPRO) Take 1 Tab by 30 Tab 3 09/03/2019 Active 10 MG Oral Tab mouth DAILY. Omeprazole 40 MG Oral Take 1 Cap by 30 Cap 3 09/22/2019 Active CAPSULE DELAYED RELEASE mouth DAILY. documented as of this encounter (statuses as of 09/22/2019) Active Problems Problem Noted Date BMI 40.0-44.9, adult 08/13/2012 Post depression 06/27/2012 Mild intermittent asthma 04/13/2010 Seasonal allergies 04/13/2010 Bee sting allergy 04/13/2010 Overview: Replaced inactive diagnosis documented as of this encounter (statuses as of 09/22/2019) Immunizations Name Administration Dates Next Due Influenza [...] Sign Reading Time Taken Comments Blood Pressure 120/78 09/22/2019 4:16 PM EDT Pulse 91 09/22/2019 4:16 PM EDT Temperature 37.4 09/22/2019 4:16 PM EDT C (99.3 F) Respiratory Rate - - Oxygen Saturation 98% 09/22/2019 4:16 PM EDT Inhaled Oxygen Concentration - - Weight 139.7 kg (308 lb) 09/22/2019 4:16 PM EDT Height 162.6 cm (5' 4") 09/22/2019 4:16 PM EDT Body Mass Index 52.87 09/22/2019 4:16 PM EDT documented in this encounter Patient Instructions Patient InstructionsDoZoe hogan PA-C - 09/22/2019 4:20 PM EDT1. Continue with lexapro 10mg once daily 2. Escribed Omeprazole 40mg, take with dinner Avoid spicy, greasy, fried foods. Do not eat late and lay down 3. Ordered xray -- will do now F/U appointment next week to discuss results Call with any questions or concerns documented in this encounter Progress Notes Zoe Victor PA-C - 09/22/2019 4:20 PM EDT PATIENT: Mahnaz Ojeda : 1985 DATE OF SERVICE: 09/22/2019 REFERRING PRACTITIONER: Zoe Victor PRIMARY CARE PROVIDER: Brennon Mcdonough CHIEF COMPLAINT: Chief Complaint Patient presents with Anxiety pt states she is feeling better but she is still losing some hair and still waking up nights. but panick attacks have decreased Subjective HISTORY OF PRESENT ILLNESS: Mahnaz Ojeda is a 34-y.o. female who presents today for follow up of anxiety Patient was seen 09/03/19, prescribed lexapro 10mg She called 09/06/19 was having stomach upset, Dr. Coleman instructed her to cut pill in half Says she did not do it, stomach upset went away after a few days Feeling better today Panic attacks have resolved Has been taking 10mg around 8-9pm alittle tired in morning Eating and drinking OK Has been having more heartburn, takes tums Also intermittent right clavicle pain and swelling x 2 yrs Says 2-3 yrs ago was hit with 70lb weight right clavicle, did not see doctor or have xray Says pain and swelling comes and goes, usually takes OTC Ibuprofen -- good relief But says when pain comes has hard time moving right arm Denies fever, chills, nausea, vomiting, diarrhea, chest pains, SOB Past Medical History: Diagnosis Date Asthma Bee sting allergies 04/13/2010 Chronic cholecystitis 2014 s/p cholecystectomy Depression Esophagitis 2017 EGD Fatty liver Herpes simplex labialis Migraine rominger Seasonal allergies Past Surgical History: Procedure Laterality Date APPENDECTOMY COLONOSCOPY N/A 10/27/2018 Procedure: COLONOSCOPY with biopsies; Surgeon: Levy Bloom DO; Location: [facility] MAIN OR EGD N/A 10/27/2018 Procedure: ENDOSCOPY UPPER GI with biopsies; Surgeon: Levy Bloom DO; Location: [facility] MAIN OR LAPAROSCOPIC CHOLECYSTECTOMY 01/22/2015 [facility] Family History Problem Relation Age of [...] DIRECTED BY PHYSICIAN NEEDED (FOR ALLERGIC REACTION) escitalopram (LEXAPRO) 10 MG Oral Tab Take 1 Tab by mouth DAILY. fexofenadine (ALBERTO) 180 MG Oral Tab TAKE 1 TABLET BY MOUTH DAILY fluticasone (FLONASE) 50 MCG/ACT Nasal Suspension fluticasone (FLOVENT HFA) 110 MCG/ACT Inhalation Aerosol Take 2 Puffs by inhalation TWICE DAILY. ondansetron (ZOFRAN) 4 MG Oral Tab Take 4 mg by mouth EVERY EIGHT HOURS NEEDED for nausea. 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 Positive asthma Cardiovascular: negative chest pain Gastrointestinal: negative abdominal pain, constipation, diarrhea, nausea or vomiting. Positive Heartburn Genitourinary: negative burning on urination, dysuria or vaginal discharge Musculoskeletal: positive right clavicle pain and swelling -- see hpi Neurologic: positive sleep disturbances -- improving Psychiatric: positive anxiety Hematologic/Lymphatic/Immunologic: positive allergies Endocrine: negative diabetes or hot flashes/sweats Objective PHYSICAL EXAMINATION: VITALS: BP 120/78 (BP Location: Left arm, Patient Position: Sitting) | Pulse 91 | Temp 99.3 F(37.4 C) | Ht 5' 4" (1.626 m) | Wt 308 lb (139.7 kg) | SpO2 98% | BMI 52.87 kg/m [...] supraclavicular adenopathy. Thyroid mild enlargement left side. Lungs - Good diaphragmatic excursion. Lungs clear. Chest symmetrical. Normal breath sounds. Heart - RRR. No murmurs, clicks or gallops. No peripheral edema. Right clavicle: tenderness at medial aspect, more prominent than left IMPRESSION: ICD-9-CM ICD-10-CM 1. Anxiety 300.00 F41.9 2. Gastroesophageal reflux disease without esophagitis 530.81 K21.9 3. Pain of right clavicle 733.90 M89.8X1 XR CLAVICLE RIGHT Plan PLAN: 1. Continue with lexapro 10mg once daily 2. Escribed Omeprazole 40mg, take with dinner Avoid spicy, greasy, fried foods. Do not eat late and lay down 3. Ordered xray -- will do now F/U appointment next week to discuss results Call with any questions or concerns Author: Zoe Victor PA-C 09/22/2019 16:29 documented in this encounter Plan of Treatment Date Type Specialty Care Team Description 09/30/2019 Office Visit Family Practice Zoe Victor PA-C [address] [place] [address] [phone] Name Type Priority Associated Diagnoses Date/Time XR CLAVICLE RIGHT Imaging Routine Pain of right clavicle 09/22/2019 4:52 PM EDT Name Type Priority Associated Diagnoses Order Schedule XR CLAVICLE RIGHT Imaging Routine Pain of right clavicle Expected: 2018, Expires: 09/21/2020 Health Maintenance Due Date Last Done Comments [...] ongoing basis. documented as of this encounter Results Not on filedocumented in this encounter Visit Diagnoses Diagnosis Anxiety - Primary Anxiety state, unspecified Gastroesophageal reflux disease without esophagitis Esophageal reflux Pain of right clavicle documented in this encounter Guarantor Name Account Type Relation to Date of Phone Billing Patient Address Mahnaz Ojeda Personal/Family 1985 [address] [phone] [place], [place] (Work) [id number] documented as of this encounter
[2019-09-29 09:10] VITALS: BP 124/90
--- NOTE | 2019-09-29 09:56 | UC ---
Respiratory Complaint HPI - HPI Summary HPI Summary: chest congestion / cough x 2 days cough is dry , worse with deep breathing , better with rest + nasal congestion , sore throat, fever and chills, chest tightness with wheezing - History of Current Complaint Chief Complaint: UCGeneralIllness Stated Complaint: ST,COUGH,RT EAR,FEVER,CHILLS,ACHES Time Seen by Provider: 09/29/19 09:32 Hx Obtained From: Patient Hx Last Menstrual Period: 08/2019 Onset/Duration: Gradual Onset, Lasting Days - 2, Still Present Timing: Constant Severity Initially: Moderate Severity Currently: Moderate Pain Intensity: 7 Pain Scale Used: 0-10 Numeric Character: Cough: Nonproductive Aggravating Factors: Exertion, Deep Breaths Alleviating Factors: Nothing Associated Signs And Symptoms: Positive: Wheezing, URI, Nasal Congestion - Allergies/Home Medications Allergies/Adverse Reactions: Allergies Allergy/AdvReac Type Severity Reaction Status Date / Time Penicillins Allergy Swelling Verified 09/29/19 09:09 Of Face,Lips,& Throat sudafed Allergy Rash Uncoded 09/29/19 09:09 Home Medications: Home Medications Ibuprofen TAB* [Motrin TAB* 800 MG] 800 mg PO ONCE 09/29/19 [History Confirmed 09/29/19] PMH/Surg Hx/FS Hx/Imm Hx Respiratory History: Asthma - Surgical History Surgical History: Yes Surgery Procedure, Year, and Place: 2011. CHOLECYSTECTOMY. APPY. TONSILLECTOMY - Family History Known Family History: Positive: Diabetes - paternal grandmother - Social History Alcohol Use: Rare Substance Use Type: None Smoking Status (MU): Never Smoked Tobacco Have You Smoked in the Last Year: No - Immunization History Most Recent Influenza Vaccination: never gets one Most Recent Tetanus Shot: UTD Most Recent Pneumonia Vaccination: N/A Review of Systems All Other Systems Reviewed And Are Negative: Yes Constitutional: Positive: Fever, Chills, Fatigue Skin: Positive: Negative Eyes: Positive: Negative ENT: Positive: Sore Throat, Ear Ache, Nasal Discharge Respiratory: Positive: Cough Cardiovascular: Positive: Negative Is Patient Immunocompromised?: No Physical Exam Triage Information Reviewed: Yes Appearance: Well-Appearing, No Pain Distress, Well-Nourished Vital Signs: Initial Vital Signs Temp 99.6 F 09/29/19 09:06 Pulse 92 09/29/19 09:06 Resp 20 09/29/19 09:06 BP 124/90 09/29/19 09:06 Pulse Ox 99 09/29/19 09:06 Vital Signs Reviewed: Yes Eye Exam: Normal Eyes: Positive: Conjunctiva Clear ENT: Positive: Normal ENT inspection, Hearing grossly normal, Pharyngeal erythema, Nasal congestion, Nasal drainage, TMs normal. Negative: TM bulging, TM dull, TM red, Tonsillar swelling, Tonsillar exudate Neck: Positive: Supple, Nontender, No Lymphadenopathy Respiratory: Positive: Chest non-tender, Lungs clear, Normal breath sounds, No respiratory distress Cardiovascular: Positive: RRR, No Murmur, Pulses Normal Skin Exam: Normal Respiratory Course/Dx - Differential Dx/Diagnosis Provider Diagnosis: URI (upper respiratory infection) Discharge ED - Sign-Out/Discharge Documenting (check all that apply): Patient Departure All imaging exams completed and their final reports reviewed: No Studies - Discharge Plan Condition: Stable Disposition: HOME Patient Education Materials: Upper Respiratory Infection (DC) Forms: *Work Release Referrals: Brennon Mcdonough MD [Primary Care Provider] - - Billing Disposition and Condition Condition: STABLE Disposition: Home
== END 2019-09-29 09:44 | disposition home or self-care (01) ==
LOC: UCCORT 08:41
DX: J06.9 Acute upper respiratory infection, unspecified (principal); J45.909 Unspecified asthma, uncomplicated; Z88.0 Allergy status to penicillin; Z88.8 Allergy status to other drugs, medicaments and biological substances
CPT/HCPCS: 99211; G0463

== ENCOUNTER 2020-01-02 09:14 | Emergency (ER) | payer OTHER ==
--- NOTE | 2020-01-02 09:51 | UC ---
FLU HPI - HPI Summary HPI Summary: 34 yo female presents with flu-like symptoms. She tells me that her two sons and boyfriend are sick with the flu. Yesterday pt developed body aches, chills, sore throat, headache, and dry cough. She has not taken anything OTC for her symptoms. She does not smoke. Denies SOB, chest pain, abdominal pain, vomiting, diarrhea, dysuria. - History of Current Complaint Stated Complaint: FLU SYMPTOMS Time Seen by Provider: 01/02/20 09:51 Hx Obtained From: Patient Hx Last Menstrual Period: 08/2019 Onset/Duration: Sudden Onset Severity Currently: Moderate Severity Initially: Mild Pain Intensity: 6 Pain Scale Used: 0-10 Numeric - Allergy/Home Medications Allergies/Adverse Reactions: Allergies Allergy/AdvReac Type Severity Reaction Status Date / Time Penicillins Allergy Swelling Verified 01/02/20 09:53 Of Face,Lips,& Throat sudafed Allergy Rash Uncoded 01/02/20 09:53 Home Medications: Home Medications Escitalopram * [Lexapro 10 mg (NF)] 10 mg PO DAILY 01/02/20 [History Confirmed 01/02/20] PMH/Surg Hx/FS Hx/Imm Hx Respiratory History: Asthma Psychological History: Anxiety, Depression - Surgical History Surgical History: Yes Surgery Procedure, Year, and Place: 2011. CHOLECYSTECTOMY. APPY. TONSILLECTOMY - Family History Known Family History: Positive: Diabetes - paternal grandmother - Social History Occupation: Employed Full-time Lives: With Family Alcohol Use: Rare Substance Use Type: None Smoking Status (MU): Never Smoked Tobacco Have You Smoked in the Last Year: No - Immunization History Most Recent Influenza Vaccination: never gets one Most Recent Tetanus Shot: UTD Most Recent Pneumonia Vaccination: N/A Review of Systems All Other Systems Reviewed And Are Negative: No Constitutional: Positive: Chills, Fatigue, Other - body aches Skin: Positive: Negative Eyes: Positive: Negative ENT: Positive: Sore Throat Respiratory: Positive: Cough Cardiovascular: Positive: Negative Gastrointestinal: Positive: Negative Neurological: Positive: Negative Psychological: Positive: Negative Physical Exam - Summary Physical Exam Summary: GENERAL: NAD. WDWN. No pain distress. SKIN: No rashes, sores, lesions, or open wounds. HEENT: Head: AT/NC Eyes: EOM intact. Conjunctiva clear without inflammation or discharge. Ears: Hearing grossly normal. TMs intact, no bulging, erythema, or edema. Nose: Nasal mucosa pink and moist. NTTP maxillary and frontal sinus. Throat: Posterior oropharynx without exudates, erythema, or tonsillar enlargement. Uvula midline. NECK: Supple. Nontender. No lymphadenopathy. CHEST: CTAB. No r/r/w. No accessory muscle use. Breathing comfortably and in no distress. CV: RRR. Pulses intact. Cap refill <2seconds NEURO: Alert. PSYCH: Age appropriate behavior. Triage Information Reviewed: Yes Vital Signs: Vital Signs: Temp Pulse Resp BP Pulse Ox 97.5 F 79 18 120/77 98 01/02/20 09:55 01/02/20 09:55 01/02/20 09:55 01/02/20 09:55 01/02/20 09:55 Laboratory Tests 01/02/20 10:27 Influenza A (Rapid) Negative Influenza B (Rapid) Negative Vital Signs Reviewed: Yes Flu Course/Dx - Course Course Of Treatment: POC flu negative. Given exposure and symptoms will treat with postexposure tamiflu at pt's request - Differential Dx/Diagnosis Provider Diagnosis: Exposure to the flu, Flu-like symptoms Discharge ED - Sign-Out/Discharge Documenting (check all that apply): Patient Departure All imaging exams completed and their final reports reviewed: No Studies - Discharge Plan Condition: Stable Disposition: HOME Prescriptions: Oseltamivir CAP* [Tamiflu CAP*] 75 mg PO DAILY #7 cap Patient Education Materials: Viral Syndrome (ED) Forms: *Work Release Referrals: Brennon Mcdonough MD [Primary Care Provider] - Additional Instructions: Your symptoms are likely from a viral infection. Viral infections do not respond to antibiotics and are limited to the treatment of symptoms. Viral infections typically run their course in 7-10 days. Drink plenty of fluids, especially if you are running any fever. Use salt water gargles several times a day. Take over the counter acetaminophen (Tylenol) or ibuprofen (Advil, Motrin) according to directions as needed for pain or fever. You may also use Chloraseptic spray or Cepacol lonzenges according to directions which contain a numbing medication and can provide some temporary relief from a sore throat. Return here or follow up with your primary care provider in 7 days if symptoms persist. - Billing Disposition and Condition Condition: STABLE Disposition: Home
[2020-01-02 10:00] VITALS: BP 120/77
[2020-01-02 10:38] LABS: Influenza A Molecular Negative (Negative); Influenza B Molecular Negative (Negative)
== END 2020-01-02 10:46 | disposition home or self-care (01) ==
LOC: UCEAST 09:14
DX: R51 Headache (principal); R05 Cough; R53.83 Other fatigue; Z20.828 Contact with and (suspected) exposure to other viral communicable diseases; J45.909 Unspecified asthma, uncomplicated; F41.9 Anxiety disorder, unspecified; F32.9 Major depressive disorder, single episode, unspecified; Z88.0 Allergy status to penicillin; Z88.8 Allergy status to other drugs, medicaments and biological substances; Z79.899 Other long term (current) drug therapy
CPT/HCPCS: 99212; G0463